=== PATIENT | female | born 1955 | race Caucasian/White ===

== ENCOUNTER 2020-07-18 22:30 | Observation (INO) ==
[2020-07-19] MEDS ORDERED: Naloxone 0.4 MG/ML INJ IVP PRN (01:13)
[2020-07-19] MEDS: Ondansetron 4 MG/2 ML VIAL IVP PRN ×2 (01:52→16:41)
[2020-07-19 03:09] LABS: Basophils % 0.3 %
[2020-07-19 03:11] LABS: Eosinophils % 0.3 %; Hematocrit 34.6 % (35.3-44.9); Hemoglobin 11.5 g/dL (11.5-15.4); Immature Granulocytes % 0.3 % (0-4); Immature Platelets 2.5 % (1.1-6.1); Lymphocytes # 0.3 K/mcL (0.6-4.6); Lymphocytes % 8.6 %; Mean Corpuscular HGB Conc 33.2 g/dL (31.6-35.5); Mean Corpuscular Hemoglobin 31.9 pg (28.0-33.3); Mean Corpuscular Volume 96.1 fL (83.0-100.0); Mean Platelet Volume 10.5 fL (9.4-12.4); Monocytes # 0.4 K/mcL (0.0-1.3); Monocytes % 12.4 %; Red Cell Distribution Width 15.7 % (11.5-14.5); Segmented Neutrophils % 78.1 %; White Blood Count 3.4 K/mcL (4.3-11.1)
[2020-07-19 03:12] LABS: INR 1.2; Prothrombin Time 14.1 Seconds (9.4-12.1)
[2020-07-19 03:16] LABS: Neutrophils # 2.7 K/mcL (1.6-8.9); Platelet Count 53 K/mcL (140-400)
[2020-07-19 03:32] LABS: Alanine Aminotransferase 15 Units/L (7-52); Albumin 3.9 g/dL (3.5-5.7); Albumin/Globulin Ratio 1.6 (1.1-2.2); Alkaline Phosphatase 68 Units/L (34-104); Aspartate Amino Transferase 23 Units/L (13-39); BUN/Creatinine Ratio 18 (6-26); Bilirubin,Total 1.1 mg/dL (0.3-1.0); Blood Urea Nitrogen 12 mg/dL (8-23); Calcium 9.1 mg/dL (8.6-10.3); Carbon Dioxide 21 mEq/L (23-29); Chloride 110 mEq/L (98-107); Globulin 2.5 g/dL (2.4-3.5); Glucose 134 mg/dL (70-105); Magnesium 1.6 mg/dL (1.6-2.6); Osmolality,Calculated 290 (280-300); Phosphorous 2.8 mg/dL (2.7-4.5); Potassium 3.8 mEq/L (3.5-5.1); Sodium 139 mEq/L (136-145); Total Protein 6.4 g/dL (6.4-8.9); eGFR For African Americans > 60 (> 60); eGFR For Non-African Americans > 60 (> 60)
[2020-07-19] MEDS ORDERED: 0.9 % Sodium Chloride 1,000 ML IVC ONE (03:36)
[2020-07-19] MEDS ORDERED: *HR* HYDROmorphone (PF) 1 MG/ML SYRINGE IVP PRN ×2 (03:37→08:35)
[2020-07-19] MEDS ORDERED: ALPRAZolam 0.5 MG TABLET PO PRN (08:35)
[2020-07-19] MEDS: Pantoprazole 40 MG VIAL IVP SCH (09:15)
[2020-07-20] MEDS: Ondansetron 4 MG/2 ML VIAL IVP PRN (00:48)
[2020-07-20 02:46] LABS: Alanine Aminotransferase 15 Units/L (7-52); Albumin 3.4 g/dL (3.5-5.7); Albumin/Globulin Ratio 1.5 (1.1-2.2); Alkaline Phosphatase 60 Units/L (34-104); Aspartate Amino Transferase 26 Units/L (13-39); BUN/Creatinine Ratio 16 (6-26); Bilirubin,Total 1.4 mg/dL (0.3-1.0); Blood Urea Nitrogen 12 mg/dL (8-23); Calcium 8.6 mg/dL (8.6-10.3); Carbon Dioxide 21 mEq/L (23-29); Chloride 112 mEq/L (98-107); Globulin 2.2 g/dL (2.4-3.5); Glucose 91 mg/dL (70-105); Magnesium 1.8 mg/dL (1.6-2.6); Osmolality,Calculated 289 (280-300); Phosphorous 2.2 mg/dL (2.7-4.5); Sodium 140 mEq/L (136-145); Total Protein 5.6 g/dL (6.4-8.9); eGFR For African Americans > 60 (> 60); eGFR For Non-African Americans > 60 (> 60)
[2020-07-20 06:05] LABS: Hemoglobin 10.4 g/dL (11.5-15.4); Mean Corpuscular Volume 99.7 fL (83.0-100.0)
[2020-07-20 06:07] LABS: Basophils % 0.6 %; Eosinophils # 0.1 K/mcL (0.0-0.6); Eosinophils % 1.9 %; Immature Granulocytes % 0.3 % (0-4); Immature Platelets 2.2 % (1.1-6.1); Lymphocytes # 0.8 K/mcL (0.6-4.6); Lymphocytes % 20.8 %; Mean Corpuscular HGB Conc 32.5 g/dL (31.6-35.5); Mean Corpuscular Hemoglobin 32.4 pg (28.0-33.3); Mean Platelet Volume 10.2 fL (9.4-12.4); Monocytes # 0.6 K/mcL (0.0-1.3); Monocytes % 15.3 %; Neutrophils # 2.2 K/mcL (1.6-8.9); Red Blood Count 3.21 M/mcL (3.82-4.97); Segmented Neutrophils % 61.1 %; White Blood Count 3.6 K/mcL (4.3-11.1)
[2020-07-20 06:20] LABS: Platelet Count 55 K/mcL (140-400)
[2020-07-20] MEDS: Pantoprazole 40 MG VIAL IVP SCH (07:59)
[2020-07-20] MEDS ORDERED: 0.9 % Sodium Chloride 1,000 ML IVC SCH (09:15)
[2020-07-20 10:14] VITALS: BP 112/58
== END 2020-07-20 16:19 | disposition home or self-care (01) ==
LOC: 3ANU → SUATTDRO 07-19 00:16
PROVIDERS: ADMIT Family Medicine; ATTEND Internal Medicine

== ENCOUNTER 2021-05-21 16:49 | Inpatient (IN) ==
[2021-05-21] MEDS ORDERED: Naloxone 0.4 MG/ML INJ IVP PRN (19:23)
[2021-05-21] MEDS: Ondansetron 4 MG/2 ML VIAL IVP PRN (20:26)
[2021-05-21] MEDS: Furosemide 20 MG TABLET PO SCH (21:42)
[2021-05-21] MEDS: ALPRAZolam 0.5 MG TABLET PO SCH (21:42)
[2021-05-21] MEDS: *HR* OxyCODONE Immed Rel 5 MG TABLET PO PRN (21:42)
[2021-05-22 03:42] LABS: Basophils % 0.3 %; Hematocrit 30.3 % (35.3-44.9); Hemoglobin 10.3 g/dL (11.5-15.4); Immature Granulocytes % 0.6 % (0-4); Immature Platelets 3.2 % (1.1-6.1); Lymphocytes # 0.4 K/mcL (0.6-4.6); Lymphocytes % 12.6 %; Mean Corpuscular Hemoglobin 31.5 pg (28.0-33.3); Mean Corpuscular Volume 92.7 fL (83.0-100.0); Mean Platelet Volume 10.4 fL (9.4-12.4); Monocytes # 0.3 K/mcL (0.0-1.3); Monocytes % 9.4 %; Neutrophils # 2.4 K/mcL (1.6-8.9); Red Blood Count 3.27 M/mcL (3.82-4.97); Red Cell Distribution Width 15.9 % (11.5-14.5); Segmented Neutrophils % 76.1 %; White Blood Count 3.1 K/mcL (4.3-11.1)
[2021-05-22 03:43] LABS: INR 1.4; Prothrombin Time 15.4 Seconds (9.4-12.1)
[2021-05-22 03:45] LABS: Platelet Count 44 K/mcL (140-400)
[2021-05-22 04:05] LABS: Alanine Aminotransferase 9 Units/L (7-52); Albumin 3.6 g/dL (3.5-5.7); Albumin/Globulin Ratio 1.5 (1.1-2.2); Alkaline Phosphatase 69 Units/L (34-104); Aspartate Amino Transferase 17 Units/L (13-39); BUN/Creatinine Ratio 13 (6-26); Bilirubin,Direct 0.3 mg/dL (0.0-0.2); Bilirubin,Indirect 1.1 mg/dL (0.0-1.0); Bilirubin,Total 1.4 mg/dL (0.3-1.0); Blood Urea Nitrogen 12 mg/dL (8-23); Calcium 9.4 mg/dL (8.6-10.3); Carbon Dioxide 27 mEq/L (23-29); Chloride 103 mEq/L (98-107); Globulin 2.4 g/dL (2.4-3.5); Glucose 103 mg/dL (70-105); Magnesium 1.8 mg/dL (1.6-2.6); Osmolality,Calculated 282 (280-300); Potassium 4.3 mEq/L (3.5-5.1); Sodium 136 mEq/L (136-145); eGFR For African Americans > 60 (> 60); eGFR For Non-African Americans > 60 (> 60)
[2021-05-22 05:09] LABS: Hepatitis B Surface Antigen Nonreactive (Nonreactive)
[2021-05-22 05:37] LABS: Hepatitis C Virus Antibody Nonreactive (Nonreactive)
[2021-05-22 05:38] LABS: Hepatitis B Core IgM Nonreactive (Nonreactive)
[2021-05-22 05:40] LABS: Hepatitis A Antibody IgM Nonreactive (Nonreactive)
[2021-05-22] MEDS: Furosemide 20 MG TABLET PO SCH ×2 (08:23→20:42)
[2021-05-22] MEDS: *HR* OxyCODONE Immed Rel 5 MG TABLET PO PRN ×2 (08:23→14:45)
[2021-05-22 13:41] LABS: RBC,Peritoneal Fluid 10000 RBC/mcL
[2021-05-22 13:43] LABS: Appearance of Peritoneal Fl CLOUDY (Clear)
[2021-05-22] MEDS ORDERED: Albumin 25% 25gram/100mL 25 GM/100 ML IV.SOLN IVPB ONE (14:00)
[2021-05-22 15:17] LABS: Basophils,Peritoneal Fluid 0 %; Eosinophils,Peritoneal Fluid 0 %
[2021-05-22] MEDS ORDERED: Albumin 25% 12.5gm/50mL 12.5 GM/50 ML IV.SOLN IVPB ONE (16:00)
[2021-05-22] MEDS ORDERED: *HR* Enoxaparin 80 MG/0.8 ML SYRINGE SQ SCH (18:00)
[2021-05-22] MEDS: ALPRAZolam 0.5 MG TABLET PO SCH (20:42)
[2021-05-23] MEDS: Furosemide 20 MG TABLET PO SCH (08:38)
[2021-05-23 09:35] LABS: Hematocrit 33.3 % (35.3-44.9); Hemoglobin 11.3 g/dL (11.5-15.4); Mean Corpuscular HGB Conc 33.9 g/dL (31.6-35.5); Mean Corpuscular Volume 91.5 fL (83.0-100.0); Mean Platelet Volume 10.4 fL (9.4-12.4); Red Blood Count 3.64 M/mcL (3.82-4.97); White Blood Count 3.4 K/mcL (4.3-11.1)
[2021-05-23 09:36] LABS: Platelet Count 48 K/mcL (140-400)
[2021-05-23 09:43] LABS: INR 1.4; Prothrombin Time 15.3 Seconds (9.4-12.1)
[2021-05-23 09:54] LABS: Alanine Aminotransferase 9 Units/L (7-52); Albumin 3.7 g/dL (3.5-5.7); Albumin/Globulin Ratio 1.4 (1.1-2.2); Alkaline Phosphatase 69 Units/L (34-104); Aspartate Amino Transferase 19 Units/L (13-39); BUN/Creatinine Ratio 8 (6-26); Bilirubin,Direct 0.3 mg/dL (0.0-0.2); Bilirubin,Indirect 1.2 mg/dL (0.0-1.0); Bilirubin,Total 1.5 mg/dL (0.3-1.0); Blood Urea Nitrogen 7 mg/dL (8-23); Calcium 9.2 mg/dL (8.6-10.3); Carbon Dioxide 27 mEq/L (23-29); Chloride 103 mEq/L (98-107); Globulin 2.6 g/dL (2.4-3.5); Glucose 102 mg/dL (70-105); Magnesium 1.6 mg/dL (1.6-2.6); Osmolality,Calculated 280 (280-300); Potassium 3.7 mEq/L (3.5-5.1); Sodium 136 mEq/L (136-145); Total Protein 6.3 g/dL (6.4-8.9); eGFR For African Americans > 60 (> 60); eGFR For Non-African Americans > 60 (> 60)
[2021-05-23 10:19] VITALS: BP 106/66; PULSE 90; TEMP 99.3; O2SAT 94
[2021-05-23] MEDS: Ondansetron 4 MG/2 ML VIAL IVP PRN (14:33)
[2021-05-24 13:52] LABS: Fluid Source for Albumin PERIT/ASCITES
== END 2021-05-23 14:57 | disposition home or self-care (01) | DRG 432 ==
LOC: 3ANU → SUATTDRO 20:04
PROVIDERS: ADMIT Internal Medicine; ATTEND Internal Medicine

== ENCOUNTER 2021-06-17 11:26 | Observation (INO) ==
[2021-06-17] MEDS ORDERED: Naloxone 0.4 MG/ML INJ IVP PRN (13:40)
[2021-06-17] MEDS ORDERED: Ondansetron 4 MG/2 ML VIAL IVP PRN (13:40)
[2021-06-17] MEDS: Albumin 25% 25gram/100mL 25 GM/100 ML IV.SOLN IVC SCH ×4 (15:02→21:12)
[2021-06-17] MEDS: *HR* OxyCODONE Immed Rel 5 MG TABLET PO PRN (15:02)
[2021-06-17 17:17] LABS: RBC,Peritoneal Fluid 9000 RBC/mcL
[2021-06-17 17:20] LABS: Appearance of Peritoneal Fl CLOUDY (Clear)
[2021-06-17] MEDS: Lactulose Oral Soln 20 GM/30 ML UDC PO SCH (17:27)
[2021-06-17 19:49] LABS: Basophils,Peritoneal Fluid 0 %
[2021-06-17] MEDS: ALPRAZolam 0.5 MG TABLET PO SCH (21:12)
[2021-06-18 02:00] LABS: Immature Platelets 3.8 % (1.1-6.1); Mean Corpuscular HGB Conc 32.1 g/dL (31.6-35.5); Mean Corpuscular Hemoglobin 30.7 pg (28.0-33.3); Mean Corpuscular Volume 95.6 fL (83.0-100.0); Mean Platelet Volume 10.3 fL (9.4-12.4); Red Blood Count 2.93 M/mcL (3.82-4.97); Red Cell Distribution Width 15.5 % (11.5-14.5); White Blood Count 1.9 K/mcL (4.3-11.1)
[2021-06-18 02:08] LABS: BUN/Creatinine Ratio 14 (6-26); Blood Urea Nitrogen 11 mg/dL (8-23); Calcium 9.5 mg/dL (8.6-10.3); Carbon Dioxide 26 mEq/L (23-29); Chloride 104 mEq/L (98-107); Glucose 111 mg/dL (70-105); Osmolality,Calculated 282 (280-300); Potassium 3.6 mEq/L (3.5-5.1); Sodium 136 mEq/L (136-145); eGFR For African Americans > 60 (> 60); eGFR For Non-African Americans > 60 (> 60)
[2021-06-18] MEDS: *HR* OxyCODONE Immed Rel 5 MG TABLET PO PRN ×3 (07:48→23:35)
[2021-06-18] MEDS: Lactulose Oral Soln 20 GM/30 ML UDC PO SCH (07:48)
[2021-06-18] MEDS: Furosemide 40 MG TABLET PO SCH ×2 (07:48→16:56)
[2021-06-18] MEDS: ALPRAZolam 0.5 MG TABLET PO SCH ×2 (07:48→20:13)
[2021-06-18 14:51] LABS: Mean Corpuscular Volume 92.2 fL (83.0-100.0)
[2021-06-18 14:53] LABS: Hematocrit 30.8 % (35.3-44.9); Hemoglobin 10.2 g/dL (11.5-15.4); Mean Corpuscular HGB Conc 33.1 g/dL (31.6-35.5); Mean Corpuscular Hemoglobin 30.5 pg (28.0-33.3); Mean Platelet Volume 9.7 fL (9.4-12.4); Red Blood Count 3.34 M/mcL (3.82-4.97); Red Cell Distribution Width 15.6 % (11.5-14.5); White Blood Count 3.4 K/mcL (4.3-11.1)
[2021-06-19] MEDS: Lactulose Oral Soln 20 GM/30 ML UDC PO SCH (07:50)
[2021-06-19] MEDS: ALPRAZolam 0.5 MG TABLET PO SCH (07:51)
[2021-06-19] MEDS: Furosemide 40 MG TABLET PO SCH (07:51)
[2021-06-19] MEDS: *HR* OxyCODONE Immed Rel 5 MG TABLET PO PRN (08:07)
[2021-06-19 08:25] LABS: Mean Corpuscular HGB Conc 33.4 g/dL (31.6-35.5); Mean Corpuscular Hemoglobin 30.5 pg (28.0-33.3); Mean Platelet Volume 9.9 fL (9.4-12.4)
[2021-06-19 08:27] LABS: Hematocrit 33.8 % (35.3-44.9); Hemoglobin 11.3 g/dL (11.5-15.4); Immature Platelets 3.4 % (1.1-6.1); Mean Corpuscular Volume 91.1 fL (83.0-100.0); Red Blood Count 3.71 M/mcL (3.82-4.97); Red Cell Distribution Width 15.5 % (11.5-14.5); White Blood Count 5.1 K/mcL (4.3-11.1)
[2021-06-19 08:44] LABS: BUN/Creatinine Ratio 11 (6-26); Blood Urea Nitrogen 11 mg/dL (8-23); Calcium 9.6 mg/dL (8.6-10.3); Carbon Dioxide 26 mEq/L (23-29); Chloride 101 mEq/L (98-107); Glucose 93 mg/dL (70-105); Osmolality,Calculated 275 (280-300); Potassium 3.9 mEq/L (3.5-5.1); Sodium 133 mEq/L (136-145); eGFR For African Americans > 60 (> 60); eGFR For Non-African Americans 54 (> 60)
[2021-06-19 11:31] VITALS: BP 96/62; PULSE 70; TEMP 98; O2SAT 96
== END 2021-06-19 15:06 | disposition home or self-care (01) ==
LOC: 3ANU → SUATTDRO 13:26
PROVIDERS: ADMIT Pharmacist; ATTEND Internal Medicine

== ENCOUNTER 2021-11-07 11:02 | Observation (INO) ==
[2021-11-07] MEDS ORDERED: Pantoprazole 40 MG VIAL IVP ONE (11:44)
[2021-11-07] MEDS ORDERED: cefTRIAXone 1,000 MG in 0.9 % Sodium Chloride 10 ML IVP ONE (11:44)
[2021-11-07] MEDS ORDERED: Metoclopramide 10 MG/2 ML VIAL IVP ONE (11:55)
[2021-11-07] MEDS ORDERED: Morphine Sulfate 2 MG/ML SYRINGE IVP ONE (11:55)
[2021-11-07] MEDS ORDERED: Pantoprazole 40 MG VIAL ONE (13:03)
[2021-11-07] MEDS: Pantoprazole 40 MG in 0.9 % Sodium Chloride Mini Bag 100 ML IVC SCH ×3 (13:15→22:39)
[2021-11-07 13:19] LABS: Basophils % 0.3 %; Immature Granulocytes % 0.5 % (0-4); Lymphocytes % 11.1 %; Mean Platelet Volume 9.8 fL (9.4-12.4)
[2021-11-07 13:21] LABS: Eosinophils % 0.3 %; Hematocrit 26.3 % (35.3-44.9); Hemoglobin 8.7 g/dL (11.5-15.4); Immature Platelets 2.1 % (1.1-6.1); Lymphocytes # 0.4 K/mcL (0.6-4.6); Mean Corpuscular HGB Conc 33.1 g/dL (31.6-35.5); Mean Corpuscular Volume 90.7 fL (83.0-100.0); Monocytes # 0.5 K/mcL (0.0-1.3); Monocytes % 12.7 %; Neutrophils # 2.9 K/mcL (1.6-8.9); Segmented Neutrophils % 75.1 %; White Blood Count 3.9 K/mcL (4.3-11.1)
[2021-11-07 13:26] LABS: Platelet Count 73 K/mcL (140-400)
[2021-11-07 13:29] LABS: INR 1.3
[2021-11-07 13:37] LABS: BUN/Creatinine Ratio 26 (6-26); Blood Urea Nitrogen 23 mg/dL (8-23); Calcium 9.9 mg/dL (8.6-10.3); Carbon Dioxide 26 mEq/L (23-29); Chloride 99 mEq/L (98-107); Glucose 101 mg/dL (70-105); Lipase 52 Units/L (11-82); Magnesium 2.2 mg/dL (1.6-2.6); Osmolality,Calculated 276 (280-300); Potassium 4.4 mEq/L (3.5-5.1); Sodium 131 mEq/L (136-145); Troponin I < 0.03 ng/mL (< 0.04); eGFR For African Americans > 60 (> 60); eGFR For Non-African Americans > 60 (> 60)
[2021-11-07 13:46] LABS: Platelet Estimate Decreased (Normal)
[2021-11-07] MEDS ORDERED: Isovue-370 500 ML BOTTLE IVP ONE (13:59)
[2021-11-07] MEDS ORDERED: Naloxone 0.4 MG/ML INJ IVP PRN (15:14)
[2021-11-07] MEDS: Ondansetron 4 MG/2 ML VIAL IVP PRN (17:39)
[2021-11-07 17:56] LABS: Albumin 3.5 g/dL (3.5-5.7); Albumin/Globulin Ratio 1.3 (1.1-2.2); Bilirubin,Direct 0.2 mg/dL (0.0-0.2); Bilirubin,Indirect 0.9 mg/dL (0.0-1.0); Bilirubin,Total 1.1 mg/dL (0.3-1.0); Globulin 2.7 g/dL (2.4-3.5); Total Protein 6.2 g/dL (6.4-8.9)
[2021-11-07 17:58] LABS: Hematocrit 25.7 % (35.3-44.9); Hemoglobin 8.6 g/dL (11.5-15.4)
[2021-11-07] MEDS: Octreotide 400 MCG in 0.9 % Sodium Chloride 100 ML IVC SCH (18:03)
[2021-11-07] MEDS: Ringers Solution, Lactated 1,000 ML IVC SCH (18:03)
[2021-11-07 21:47] LABS: Hematocrit 22.4 % (35.3-44.9); Hemoglobin 7.5 g/dL (11.5-15.4)
[2021-11-07] MEDS: Melatonin 3 MG TABLET PO PRN (21:55)
[2021-11-08 03:29] LABS: Bilirubin,Urine Negative (Negative); Blood,Urine Negative (Negative); Clarity,Urine Clear (Clear); Color,Urine Yellow (Yellow); Glucose,Urine (UA) Normal (Normal); Ketones,Urine Negative (Negative); Leukocyte Esterase,Urine Negative (Negative); Nitrite,Urine Negative (Negative); PH,Urine 5.5 pH Units (5.0-8.0); Protein,Urine Trace mg/dL (Neg-Trace); Specific Gravity,Urine > 1.030 (1.010-1.025); Urobilinogen,Urine Normal (Normal)
[2021-11-08] MEDS: Pantoprazole 40 MG in 0.9 % Sodium Chloride Mini Bag 100 ML IVC SCH ×2 (04:32→19:34)
[2021-11-08 05:07] LABS: INR 1.3; Prothrombin Time 14.6 Seconds (9.4-12.1)
[2021-11-08 05:17] LABS: Hematocrit 22.2 % (35.3-44.9); Hemoglobin 7.5 g/dL (11.5-15.4); Mean Corpuscular HGB Conc 33.8 g/dL (31.6-35.5); Mean Corpuscular Hemoglobin 30.7 pg (28.0-33.3); Red Blood Count 2.44 M/mcL (3.82-4.97); Red Cell Distribution Width 16.1 % (11.5-14.5)
[2021-11-08 05:19] LABS: Basophils % 0.3 %; Eosinophils % 0.7 %; Immature Granulocytes % 0.3 % (0-4); Lymphocytes # 0.4 K/mcL (0.6-4.6); Lymphocytes % 11.7 %; Monocytes # 0.4 K/mcL (0.0-1.3); Monocytes % 12.7 %; Neutrophils # 2.2 K/mcL (1.6-8.9); Segmented Neutrophils % 74.3 %
[2021-11-08 05:22] LABS: BUN/Creatinine Ratio 22 (6-26); Blood Urea Nitrogen 21 mg/dL (8-23); Calcium 8.9 mg/dL (8.6-10.3); Carbon Dioxide 24 mEq/L (23-29); Chloride 101 mEq/L (98-107); Glucose 124 mg/dL (70-105); Magnesium 1.9 mg/dL (1.6-2.6); Osmolality,Calculated 276 (280-300); Phosphorous 3.4 mg/dL (2.7-4.5); Potassium 4.7 mEq/L (3.5-5.1); Sodium 131 mEq/L (136-145); eGFR For African Americans > 60 (> 60); eGFR For Non-African Americans 59 (> 60)
[2021-11-08 05:30] LABS: Platelet Count 62 K/mcL (140-400); Platelet Estimate Decreased (Normal)
[2021-11-08] MEDS: Octreotide 400 MCG in 0.9 % Sodium Chloride 100 ML IVC SCH (06:57)
[2021-11-08] MEDS: Ringers Solution, Lactated 1,000 ML IVC SCH (06:58)
[2021-11-08] MEDS: cefTRIAXone 1,000 MG in 0.9 % Sodium Chloride 10 ML IVP SCH (09:04)
[2021-11-08] MEDS ORDERED: *HR* Propofol 200 MG/20 ML VIAL IVP ONE ×2 (11:32→11:48)
[2021-11-08] MEDS ORDERED: *HR* EPINEPHrine 1 MG/10 ML SYRINGE INTRATRACH PRN (11:47)
[2021-11-08] MEDS: ALPRAZolam 0.5 MG TABLET PO PRN ×2 (13:14→20:14)
[2021-11-08] MEDS: Ondansetron 4 MG/2 ML VIAL IVP PRN (15:20)
[2021-11-08] MEDS: Melatonin 3 MG TABLET PO PRN (20:14)
[2021-11-08 23:58] VITALS: O2SAT 96
[2021-11-09] MEDS: Pantoprazole 40 MG in 0.9 % Sodium Chloride Mini Bag 100 ML IVC SCH (01:06)
[2021-11-09] MEDS: Ondansetron 4 MG/2 ML VIAL IVP PRN (03:15)
[2021-11-09 06:40] VITALS: BP 106/47; PULSE 85; TEMP 98.1
[2021-11-09 06:48] LABS: INR 1.3; Prothrombin Time 14.2 Seconds (9.4-12.1)
[2021-11-09 07:20] LABS: Basophils % 0.2 %; Immature Granulocytes % 0.2 % (0-4); Red Blood Count 2.45 M/mcL (3.82-4.97)
[2021-11-09 07:22] LABS: Eosinophils % 0.2 %; Hematocrit 22.5 % (35.3-44.9); Hemoglobin 7.4 g/dL (11.5-15.4); Immature Platelets 2.7 % (1.1-6.1); Lymphocytes # 0.4 K/mcL (0.6-4.6); Lymphocytes % 9.5 %; Mean Corpuscular HGB Conc 32.9 g/dL (31.6-35.5); Mean Corpuscular Hemoglobin 30.2 pg (28.0-33.3); Mean Corpuscular Volume 91.8 fL (83.0-100.0); Monocytes # 0.4 K/mcL (0.0-1.3); Neutrophils # 3.2 K/mcL (1.6-8.9); Red Cell Distribution Width 15.9 % (11.5-14.5); Segmented Neutrophils % 78.9 %
[2021-11-09 07:28] LABS: Platelet Count 69 K/mcL (140-400)
[2021-11-09 07:35] LABS: BUN/Creatinine Ratio 20 (6-26); Blood Urea Nitrogen 18 mg/dL (8-23); Calcium 8.5 mg/dL (8.6-10.3); Carbon Dioxide 25 mEq/L (23-29); Chloride 103 mEq/L (98-107); Glucose 96 mg/dL (70-105); Magnesium 1.8 mg/dL (1.6-2.6); Osmolality,Calculated 276 (280-300); Potassium 4.4 mEq/L (3.5-5.1); Sodium 132 mEq/L (136-145); eGFR For African Americans > 60 (> 60); eGFR For Non-African Americans > 60 (> 60)
[2021-11-09] MEDS: cefTRIAXone 1,000 MG in 0.9 % Sodium Chloride 10 ML IVP SCH (08:22)
[2021-11-09] MEDS ORDERED: Apixaban 5 MG TABLET PO SCH (09:00)
== END 2021-11-09 14:54 | disposition home or self-care (01) ==
LOC: EMEROOARM 11:02 → 2NENU 11:02
PROVIDERS: ADMIT Internal Medicine; ATTEND Internal Medicine

== ENCOUNTER 2022-03-11 10:24 | Observation (INO) ==
[2022-03-11 11:30] LABS: Albumin 3.5 g/dL (3.5-5.7); Albumin/Globulin Ratio 1.4 (1.1-2.2); Bilirubin,Total 0.8 mg/dL (0.3-1.0); Calcium 9.4 mg/dL (8.6-10.3); Globulin 2.5 g/dL (2.4-3.5); Potassium 4.1 mEq/L (3.5-5.1)
[2022-03-11] MEDS ORDERED: *HR* FentaNYL (PF) 100 MCG/2 ML VIAL ONE (12:15)
[2022-03-11] MEDS ORDERED: Ondansetron 4 MG/2 ML VIAL IVP PRN ×3 (14:31→16:25)
[2022-03-11] MEDS ORDERED: Promethazine 6.25 MG in Water for inj. (sterile) 20 ML IVPB PRN (14:31)
[2022-03-11] MEDS: *HR* HYDROmorphone PF 0.5 MG/0.5 ML SYRINGE IVP PRN ×2 (14:40→14:49)
[2022-03-11] MEDS: Promethazine 6.25 MG in Water for inj. (sterile) 20 ML IVPB PRN ×2 (14:53→20:02)
[2022-03-11] MEDS ORDERED: Acetaminophen 325 MG TABLET PO PRN (16:25)
[2022-03-11] MEDS ORDERED: Naloxone 0.4 MG/ML INJ IVP PRN (16:25)
[2022-03-11] MEDS: *HR* OxyCODONE Immed Rel 5 MG TABLET PO PRN ×2 (17:03→23:22)
[2022-03-11] MEDS: ALPRAZolam 0.5 MG TABLET PO PRN (20:02)
[2022-03-12 01:40] LABS: Hemoglobin 7.3 g/dL (11.5-15.4); Red Cell Distribution Width 20.3 % (11.5-14.5)
[2022-03-12 01:42] LABS: Hematocrit 23.6 % (35.3-44.9); Immature Granulocytes % 0.7 % (0-4); Immature Platelets 1.8 % (1.1-6.1); Lymphocytes # 0.2 K/mcL (0.6-4.6); Lymphocytes % 6.6 %; Mean Corpuscular HGB Conc 30.9 g/dL (31.6-35.5); Mean Corpuscular Hemoglobin 23.1 pg (28.0-33.3); Mean Corpuscular Volume 74.7 fL (83.0-100.0); Mean Platelet Volume 9.5 fL (9.4-12.4); Monocytes # 0.2 K/mcL (0.0-1.3); Monocytes % 7.3 %; Neutrophils # 2.6 K/mcL (1.6-8.9); Red Blood Count 3.16 M/mcL (3.82-4.97); Segmented Neutrophils % 85.4 %
[2022-03-12 01:44] LABS: Platelet Count 69 K/mcL (140-400)
[2022-03-12 01:46] LABS: INR 1.3; Prothrombin Time 14.2 Seconds (9.4-12.1)
[2022-03-12 02:00] LABS: Calcium 8.6 mg/dL (8.6-10.3); Magnesium 1.8 mg/dL (1.6-2.6); Potassium 4.5 mEq/L (3.5-5.1)
[2022-03-12 02:01] LABS: Albumin/Globulin Ratio 1.4 (1.1-2.2); Bilirubin,Direct 0.2 mg/dL (0.0-0.2); Bilirubin,Indirect 0.6 mg/dL (0.0-1.0); Bilirubin,Total 0.8 mg/dL (0.3-1.0); Globulin 2.2 g/dL (2.4-3.5); Total Protein 5.2 g/dL (6.4-8.9)
[2022-03-12 07:42] VITALS: BP 102/35; PULSE 83; TEMP 97.8; O2SAT 98
[2022-03-12] MEDS: *HR* OxyCODONE Immed Rel 5 MG TABLET PO PRN ×2 (07:59→14:04)
[2022-03-12] MEDS: ALPRAZolam 0.5 MG TABLET PO PRN (07:59)
== END 2022-03-12 14:13 | disposition home or self-care (01) ==
LOC: 2NNU 10:24 → LAB 10:24
PROVIDERS: ADMIT Pharmacist; ATTEND Pharmacist

== ENCOUNTER 2022-04-08 16:15 | Inpatient (IN) ==
[2022-04-08] MEDS ORDERED: Ondansetron ODT 4 MG TAB.RAPDIS SL PRN (19:27)
[2022-04-08] MEDS ORDERED: Naloxone 0.4 MG/ML INJ IVP PRN (19:27)
[2022-04-08] MEDS ORDERED: Melatonin 3 MG TABLET PO PRN (19:27)
[2022-04-08] MEDS ORDERED: Lactulose Oral Soln 20 GM/30 ML UDC PO SCH (21:00)
[2022-04-08] MEDS: Lactulose Oral Soln 20 GM/30 ML UDC PO SCH (22:39)
[2022-04-09] MEDS: ALPRAZolam 0.25 MG TABLET PO SCH ×2 (01:55→20:49)
[2022-04-09 04:50] LABS: Hemoglobin 7.1 g/dL (11.5-15.4)
[2022-04-09 04:55] LABS: INR 1.5; Prothrombin Time 16.7 Seconds (9.4-12.1)
[2022-04-09 05:18] LABS: Albumin 3.1 g/dL (3.5-5.7); Albumin/Globulin Ratio 1.3 (1.1-2.2); Bilirubin,Direct 0.5 mg/dL (0.0-0.2); Bilirubin,Indirect 1.5 mg/dL (0.0-1.0); Globulin 2.3 g/dL (2.4-3.5); Phosphorous 2.5 mg/dL (2.7-4.5); Total Protein 5.4 g/dL (6.4-8.9)
[2022-04-09 05:23] LABS: Basophils % 0.3 %; Eosinophils # 0.1 K/mcL (0.0-0.6); Eosinophils % 4.1 %; Hematocrit 22.1 % (35.3-44.9); Lymphocytes # 0.4 K/mcL (0.6-4.6); Lymphocytes % 14.5 %; Mean Corpuscular HGB Conc 32.1 g/dL (31.6-35.5); Mean Corpuscular Hemoglobin 24.9 pg (28.0-33.3); Mean Corpuscular Volume 77.5 fL (83.0-100.0); Mean Platelet Volume 9.6 fL (9.4-12.4); Monocytes % 14.9 %; Red Blood Count 2.85 M/mcL (3.82-4.97); Red Cell Distribution Width 23.6 % (11.5-14.5); Segmented Neutrophils % 66.2 %
[2022-04-09 05:24] LABS: Monocytes # 0.5 K/mcL (0.0-1.3); Platelet Count 65 K/mcL (140-400)
[2022-04-09] MEDS: Lactulose Oral Soln 20 GM/30 ML UDC PO SCH ×2 (08:09→20:49)
[2022-04-09] MEDS: Furosemide 40 MG TABLET PO SCH (08:09)
[2022-04-09 11:32] LABS: Bilirubin,Urine Negative (Negative); Blood,Urine Negative (Negative); Clarity,Urine Clear (Clear); Color,Urine Light-Yellow (Yellow); Glucose,Urine (UA) Normal (Normal); Ketones,Urine Negative (Negative); Leukocyte Esterase,Urine Negative (Negative); Nitrite,Urine Negative (Negative); PH,Urine 6.5 pH Units (5.0-8.0); Protein,Urine Negative (Neg-Trace); Specific Gravity,Urine 1.009 (1.010-1.025)
[2022-04-09] MEDS ORDERED: ALPRAZolam 0.25 MG TABLET PO SCH (21:00)
[2022-04-10 06:44] LABS: Basophils % 0.6 %; Immature Granulocytes % 0.3 % (0-4)
[2022-04-10 06:46] LABS: Eosinophils # 0.1 K/mcL (0.0-0.6); Eosinophils % 3.1 %; Hematocrit 22.3 % (35.3-44.9); Hemoglobin 7.1 g/dL (11.5-15.4); Immature Platelets 1.8 % (1.1-6.1); Lymphocytes # 0.5 K/mcL (0.6-4.6); Lymphocytes % 14.1 %; Mean Corpuscular HGB Conc 31.8 g/dL (31.6-35.5); Mean Corpuscular Hemoglobin 24.9 pg (28.0-33.3); Mean Corpuscular Volume 78.2 fL (83.0-100.0); Mean Platelet Volume 9.6 fL (9.4-12.4); Monocytes # 0.5 K/mcL (0.0-1.3); Monocytes % 14.4 %; Neutrophils # 2.2 K/mcL (1.6-8.9); Red Blood Count 2.85 M/mcL (3.82-4.97); Red Cell Distribution Width 23.5 % (11.5-14.5); Segmented Neutrophils % 67.5 %; White Blood Count 3.3 K/mcL (4.3-11.1)
[2022-04-10 06:51] LABS: Platelet Count 77 K/mcL (140-400)
[2022-04-10 06:58] LABS: Albumin 3.1 g/dL (3.5-5.7); Albumin/Globulin Ratio 1.3 (1.1-2.2); Bilirubin,Total 2.1 mg/dL (0.3-1.0); Calcium 9.4 mg/dL (8.6-10.3); Globulin 2.3 g/dL (2.4-3.5); Potassium 4.2 mEq/L (3.5-5.1); Total Protein 5.4 g/dL (6.4-8.9)
[2022-04-10] MEDS: Furosemide 40 MG TABLET PO SCH (07:45)
[2022-04-10] MEDS: Lactulose Oral Soln 20 GM/30 ML UDC PO SCH ×4 (07:46→22:52)
[2022-04-10] MEDS: Bumetanide 1 MG TABLET PO SCH (16:56)
[2022-04-10] MEDS: ALPRAZolam 0.25 MG TABLET PO SCH (22:45)
[2022-04-11 04:05] LABS: Red Cell Distribution Width 23.6 % (11.5-14.5)
[2022-04-11 04:06] LABS: Basophils % 0.3 %; Eosinophils # 0.1 K/mcL (0.0-0.6); Eosinophils % 2.7 %; Hematocrit 22.2 % (35.3-44.9); Hemoglobin 7.1 g/dL (11.5-15.4); Immature Platelets 2.2 % (1.1-6.1); Lymphocytes # 0.5 K/mcL (0.6-4.6); Mean Corpuscular Hemoglobin 24.8 pg (28.0-33.3); Mean Corpuscular Volume 77.6 fL (83.0-100.0); Mean Platelet Volume 9.9 fL (9.4-12.4); Monocytes # 0.5 K/mcL (0.0-1.3); Monocytes % 15.3 %; Red Blood Count 2.86 M/mcL (3.82-4.97); Segmented Neutrophils % 66.7 %
[2022-04-11 04:09] LABS: INR 1.4; Prothrombin Time 15.7 Seconds (9.4-12.1)
[2022-04-11 04:23] LABS: Albumin 3.1 g/dL (3.5-5.7); Albumin/Globulin Ratio 1.3 (1.1-2.2); Bilirubin,Direct 0.5 mg/dL (0.0-0.2); Bilirubin,Indirect 1.1 mg/dL (0.0-1.0); Bilirubin,Total 1.6 mg/dL (0.3-1.0); Calcium 9.2 mg/dL (8.6-10.3); Globulin 2.4 g/dL (2.4-3.5); Magnesium 1.9 mg/dL (1.6-2.6); Phosphorous 2.4 mg/dL (2.7-4.5); Potassium 3.9 mEq/L (3.5-5.1); Total Protein 5.5 g/dL (6.4-8.9)
[2022-04-11 05:13] LABS: Platelet Count 66 K/mcL (140-400)
[2022-04-11 05:31] LABS: Anisocytosis 2+ (Not Present)
[2022-04-11] MEDS ORDERED: Lactulose 200 GM, Sodium Chloride IRRigation 700 ML RC ONE (07:37)
[2022-04-11] MEDS ORDERED: Iron Sucrose Complex 200 MG in 0.9 % Sodium Chloride 100 ML IVPB ONE (09:28)
[2022-04-11] MEDS: Lactulose Oral Soln 20 GM/30 ML UDC PO SCH ×3 (09:32→20:28)
[2022-04-11] MEDS: Bumetanide 1 MG TABLET PO SCH ×2 (09:33→16:41)
[2022-04-11] MEDS ORDERED: ALPRAZolam 0.5 MG TABLET PO PRN (10:25)
[2022-04-11 22:17] VITALS: TEMP 98
[2022-04-12 03:49] LABS: Basophils % 0.7 %; Eosinophils # 0.1 K/mcL (0.0-0.6); Eosinophils % 4.2 %; Immature Granulocytes % 0.7 % (0-4); Immature Platelets 2.7 % (1.1-6.1); Lymphocytes # 0.5 K/mcL (0.6-4.6); Lymphocytes % 14.7 %; Mean Corpuscular HGB Conc 31.8 g/dL (31.6-35.5); Mean Corpuscular Hemoglobin 24.6 pg (28.0-33.3); Mean Corpuscular Volume 77.2 fL (83.0-100.0); Mean Platelet Volume 9.2 fL (9.4-12.4); Monocytes # 0.5 K/mcL (0.0-1.3); Red Blood Count 2.85 M/mcL (3.82-4.97); Red Cell Distribution Width 23.6 % (11.5-14.5); Segmented Neutrophils % 63.7 %; White Blood Count 3.1 K/mcL (4.3-11.1)
[2022-04-12 04:01] LABS: Platelet Count 74 K/mcL (140-400)
[2022-04-12 04:06] LABS: Calcium 9.2 mg/dL (8.6-10.3); Phosphorous 3.1 mg/dL (2.7-4.5); Potassium 3.8 mEq/L (3.5-5.1)
[2022-04-12 06:29] LABS: Platelet Estimate Decreased (Normal)
[2022-04-12 06:30] LABS: Anisocytosis 1+ (Not Present)
[2022-04-12] MEDS ORDERED: Iron Sucrose Complex 200 MG in 0.9 % Sodium Chloride 100 ML IVPB ONE (07:20)
[2022-04-12] MEDS: Lactulose Oral Soln 20 GM/30 ML UDC PO SCH (07:31)
[2022-04-12] MEDS: Bumetanide 1 MG TABLET PO SCH (07:31)
[2022-04-12 11:23] VITALS: BP 106/62; PULSE 87; O2SAT 97
[2022-04-12 12:49] LABS: Hematocrit 23.6 % (35.3-44.9); Hemoglobin 7.6 g/dL (11.5-15.4)
[2022-04-12] MEDS ORDERED: Flu Vac QV 22-23 (6MOS UP)/PF 0.5 ML SYRINGE IM ONE (13:26)
== END 2022-04-12 14:56 | disposition home or self-care (01) | DRG 433 ==
LOC: 3ANU → SUATTDRO 18:50 → 3ANU 18:57
PROVIDERS: ADMIT Hospitalist; ATTEND Internal Medicine

== ENCOUNTER 2022-05-01 14:34 | Inpatient (IN) ==
[2022-05-01] MEDS ORDERED: Naloxone 0.4 MG/ML INJ IVP PRN (17:17)
[2022-05-01] MEDS ORDERED: Ondansetron 4 MG/2 ML VIAL IVP PRN (17:17)
[2022-05-01] MEDS ORDERED: *HR* Dextrose 50 % in Water (Syg) 50 ML SYRINGE IVP PRN (17:22)
[2022-05-01] MEDS ORDERED: D5% in Water 1,000 ML IVC PRN (17:22)
[2022-05-01] MEDS ORDERED: Dextrose Gel 15 GM/37.5 ML TUBE PO PRN ×2 (17:22)
[2022-05-01] MEDS ORDERED: ALPRAZolam 0.5 MG TABLET PO PRN (18:51)
[2022-05-01 19:06] LABS: Bilirubin,Urine Negative (Negative); Blood,Urine Negative (Negative); Clarity,Urine Clear (Clear); Color,Urine Yellow (Yellow); Glucose,Urine (UA) Normal (Normal); Ketones,Urine Negative (Negative); Leukocyte Esterase,Urine Negative (Negative); Nitrite,Urine Negative (Negative); Protein,Urine Negative (Neg-Trace); Specific Gravity,Urine 1.016 (1.010-1.025); Urobilinogen,Urine >=8.0 mg/dL (Normal)
[2022-05-01 19:20] LABS: Amphetamine Screen,Urine Negative ng/mL (Cutoff=1000); Barbiturate Screen,Urine Negative ng/mL (Cutoff=200); Benzodiazepines Screen,Urine Positive ng/mL (Cutoff=200); Cannabinoid Screen,Urine Positive ng/mL (Cutoff = 50); Cocaine Screen,Urine Negative ng/mL (Cutoff= 300); Opiate Screen,Urine Negative ng/mL (Cutoff=300); Phencyclidine Screen,Urine Negative ng/mL (Cutoff=25)
[2022-05-01] MEDS: Lactulose Oral Soln 20 GM/30 ML UDC PO SCH (20:17)
[2022-05-02 05:21] LABS: INR 1.3; Prothrombin Time 14.9 Seconds (9.4-12.1)
[2022-05-02 06:25] LABS: Hemoglobin 7.2 g/dL (11.5-15.4); Immature Granulocytes % 0.6 % (0-4)
[2022-05-02 06:27] LABS: Basophils % 0.6 %; Eosinophils # 0.1 K/mcL (0.0-0.6); Eosinophils % 2.8 %; Hematocrit 22.6 % (35.3-44.9); Immature Platelets 1.4 % (1.1-6.1); Lymphocytes # 0.4 K/mcL (0.6-4.6); Lymphocytes % 21.5 %; Mean Corpuscular HGB Conc 31.9 g/dL (31.6-35.5); Mean Corpuscular Hemoglobin 28.1 pg (28.0-33.3); Mean Corpuscular Volume 88.3 fL (83.0-100.0); Monocytes # 0.3 K/mcL (0.0-1.3); Monocytes % 18.1 %; Red Blood Count 2.56 M/mcL (3.82-4.97); Red Cell Distribution Width 26.4 % (11.5-14.5); Segmented Neutrophils % 56.4 %; White Blood Count 1.8 K/mcL (4.3-11.1)
[2022-05-02 06:56] LABS: Activated Partial Thrombo Time 20.9 Seconds (26.0-36.0)
[2022-05-02 07:53] LABS: BUN/Creatinine Ratio 19 (6-26); Blood Urea Nitrogen 12 mg/dL (8-23); Chloride 110 mEq/L (98-107); Glucose 95 mg/dL (70-105); Osmolality,Calculated 290 (280-300); Potassium 3.2 mEq/L (3.5-5.1); Sodium 140 mEq/L (136-145)
[2022-05-02 07:54] LABS: Alanine Aminotransferase 15 Units/L (7-52); Albumin 2.6 g/dL (3.5-5.7); Alkaline Phosphatase 91 Units/L (34-104); Aspartate Amino Transferase 22 Units/L (13-39); Bilirubin,Direct 0.5 mg/dL (0.0-0.2); Calcium 8.5 mg/dL (8.6-10.3); Phosphorous 2.8 mg/dL (2.7-4.5)
[2022-05-02 08:12] LABS: Albumin/Globulin Ratio 1.4 (1.1-2.2); Bilirubin,Indirect 1.4 mg/dL (0.0-1.0); Bilirubin,Total 1.9 mg/dL (0.3-1.0); Carbon Dioxide 23 mEq/L (23-29); Total Protein 4.7 g/dL (6.4-8.9)
[2022-05-02] MEDS: Lactulose Oral Soln 20 GM/30 ML UDC PO SCH ×3 (10:02→20:55)
[2022-05-02] MEDS: Bumetanide 1 MG TABLET PO SCH ×2 (10:03→20:55)
[2022-05-02 10:36] LABS: Platelet Count 82 K/mcL (140-400)
[2022-05-02 10:39] LABS: Anisocytosis 1+ (Not Present); Platelet Estimate Decreased (Normal)
[2022-05-03 09:43] LABS: Hematocrit 24.8 % (35.3-44.9); Hemoglobin 7.9 g/dL (11.5-15.4); Immature Platelets 1.3 % (1.1-6.1); Lymphocytes # 0.3 K/mcL (0.6-4.6); Mean Corpuscular HGB Conc 31.9 g/dL (31.6-35.5); Mean Corpuscular Hemoglobin 28.7 pg (28.0-33.3); Mean Corpuscular Volume 90.2 fL (83.0-100.0); Mean Platelet Volume 8.7 fL (9.4-12.4); Red Blood Count 2.75 M/mcL (3.82-4.97); Red Cell Distribution Width 26.4 % (11.5-14.5); White Blood Count 2.9 K/mcL (4.3-11.1)
[2022-05-03] MEDS: Lactulose Oral Soln 20 GM/30 ML UDC PO SCH ×3 (09:56→20:40)
[2022-05-03] MEDS: Bumetanide 1 MG TABLET PO SCH ×2 (09:56→20:40)
[2022-05-03 09:59] LABS: Calcium 8.6 mg/dL (8.6-10.3); Potassium 3.5 mEq/L (3.5-5.1)
[2022-05-03 10:01] LABS: Platelet Count 82 K/mcL (140-400)
[2022-05-03 10:47] LABS: Anisocytosis 3+ (Not Present); Monocytes # 0.2 K/mcL (0.0-1.3); Neutrophils # 2.4 K/mcL (1.6-8.9); Platelet Estimate Decreased (Normal)
[2022-05-03 10:48] LABS: Poikilocytosis 1+ (Not Present); Polychromasia 1+ (Not Present)
[2022-05-03] MEDS: Insulin LISPRO 300 UNITS/3 ML VIAL SUBQ SCH ×2 (12:50→18:23)
[2022-05-03] MEDS: polyethylene glycoL 3350 17 GM POWD.PACK PO SCH (20:40)
[2022-05-03] MEDS ORDERED: Insulin LISPRO 300 UNITS/3 ML VIAL SUBQ SCH (21:00)
[2022-05-04 03:05] LABS: Hemoglobin 7.5 g/dL (11.5-15.4); Immature Granulocytes % 0.3 % (0-4); Red Cell Distribution Width 25.4 % (11.5-14.5)
[2022-05-04 03:07] LABS: Basophils % 0.7 %; Eosinophils # 0.1 K/mcL (0.0-0.6); Eosinophils % 2.3 %; Hematocrit 22.9 % (35.3-44.9); Immature Platelets 1.6 % (1.1-6.1); Lymphocytes # 0.5 K/mcL (0.6-4.6); Lymphocytes % 15.4 %; Mean Corpuscular HGB Conc 32.8 g/dL (31.6-35.5); Mean Corpuscular Hemoglobin 28.8 pg (28.0-33.3); Mean Corpuscular Volume 88.1 fL (83.0-100.0); Mean Platelet Volume 9.3 fL (9.4-12.4); Monocytes # 0.4 K/mcL (0.0-1.3); Monocytes % 12.1 %; Segmented Neutrophils % 69.2 %; White Blood Count 3.1 K/mcL (4.3-11.1)
[2022-05-04 03:13] LABS: Neutrophils # 2.2 K/mcL (1.6-8.9); Platelet Count 71 K/mcL (140-400)
[2022-05-04 03:29] LABS: BUN/Creatinine Ratio 18 (6-26); Blood Urea Nitrogen 12 mg/dL (8-23); Calcium 8.2 mg/dL (8.6-10.3); Carbon Dioxide 26 mEq/L (23-29); Chloride 106 mEq/L (98-107); Glucose 104 mg/dL (70-105); Osmolality,Calculated 284 (280-300); Sodium 137 mEq/L (136-145)
[2022-05-04 04:33] LABS: Anisocytosis 3+ (Not Present)
[2022-05-04 04:34] LABS: Platelet Estimate Decreased (Normal); Polychromasia 1+ (Not Present)
[2022-05-04] MEDS: Insulin LISPRO 300 UNITS/3 ML VIAL SUBQ SCH ×2 (08:37→12:34)
[2022-05-04] MEDS: Bumetanide 1 MG TABLET PO SCH ×2 (09:23→19:58)
[2022-05-04] MEDS: Lactulose Oral Soln 20 GM/30 ML UDC PO SCH ×3 (09:23→19:58)
[2022-05-04] MEDS: Lactobacillus 1 EACH CAP.SPRINK PO SCH (09:23)
[2022-05-04] MEDS: polyethylene glycoL 3350 17 GM POWD.PACK PO SCH ×2 (09:28→19:58)
[2022-05-05 03:35] LABS: BUN/Creatinine Ratio 16 (6-26); Blood Urea Nitrogen 11 mg/dL (8-23); Calcium 8.4 mg/dL (8.6-10.3); Carbon Dioxide 25 mEq/L (23-29); Chloride 106 mEq/L (98-107); Glucose 87 mg/dL (70-105); Magnesium 1.7 mg/dL (1.6-2.6); Osmolality,Calculated 283 (280-300); Potassium 3.3 mEq/L (3.5-5.1); Sodium 137 mEq/L (136-145)
[2022-05-05] MEDS: Bumetanide 1 MG TABLET PO SCH ×2 (08:39→20:23)
[2022-05-05] MEDS: polyethylene glycoL 3350 17 GM POWD.PACK PO SCH ×2 (08:39→20:23)
[2022-05-05] MEDS: Lactobacillus 1 EACH CAP.SPRINK PO SCH (08:39)
[2022-05-05] MEDS: Lactulose Oral Soln 20 GM/30 ML UDC PO SCH ×3 (08:39→20:22)
[2022-05-06 03:18] LABS: Mean Corpuscular Volume 87.6 fL (83.0-100.0)
[2022-05-06 03:20] LABS: Hematocrit 23.3 % (35.3-44.9); Hemoglobin 7.6 g/dL (11.5-15.4); Mean Corpuscular HGB Conc 32.6 g/dL (31.6-35.5); Mean Corpuscular Hemoglobin 28.6 pg (28.0-33.3); Red Blood Count 2.66 M/mcL (3.82-4.97); Red Cell Distribution Width 25.6 % (11.5-14.5); White Blood Count 3.5 K/mcL (4.3-11.1)
[2022-05-06 03:36] LABS: BUN/Creatinine Ratio 13 (6-26); Blood Urea Nitrogen 9 mg/dL (8-23); Calcium 8.6 mg/dL (8.6-10.3); Carbon Dioxide 25 mEq/L (23-29); Chloride 104 mEq/L (98-107); Glucose 80 mg/dL (70-105); Magnesium 1.8 mg/dL (1.6-2.6); Osmolality,Calculated 280 (280-300); Potassium 3.4 mEq/L (3.5-5.1); Sodium 136 mEq/L (136-145)
[2022-05-06] MEDS: Lactulose Oral Soln 20 GM/30 ML UDC PO SCH ×3 (08:15→19:36)
[2022-05-06] MEDS: Lactobacillus 1 EACH CAP.SPRINK PO SCH (08:16)
[2022-05-06] MEDS: Bumetanide 1 MG TABLET PO SCH ×2 (08:16→19:35)
[2022-05-06] MEDS: polyethylene glycoL 3350 17 GM POWD.PACK PO SCH ×2 (08:16→19:36)
[2022-05-06 17:34] LABS: Calcium 9.1 mg/dL (8.6-10.3); Phosphorous 2.8 mg/dL (2.7-4.5); Potassium 3.1 mEq/L (3.5-5.1)
[2022-05-07 05:08] LABS: Hematocrit 21.4 % (35.3-44.9); Mean Corpuscular HGB Conc 32.7 g/dL (31.6-35.5); Mean Corpuscular Hemoglobin 28.8 pg (28.0-33.3); Mean Corpuscular Volume 88.1 fL (83.0-100.0); Mean Platelet Volume 8.6 fL (9.4-12.4); Red Blood Count 2.43 M/mcL (3.82-4.97); Red Cell Distribution Width 25.6 % (11.5-14.5); White Blood Count 3.4 K/mcL (4.3-11.1)
[2022-05-07 05:24] LABS: Calcium 8.1 mg/dL (8.6-10.3); Potassium 3.2 mEq/L (3.5-5.1)
[2022-05-07] MEDS: Lactulose Oral Soln 20 GM/30 ML UDC PO SCH ×2 (09:47→14:48)
[2022-05-07] MEDS: polyethylene glycoL 3350 17 GM POWD.PACK PO SCH (09:48)
[2022-05-07] MEDS: Lactobacillus 1 EACH CAP.SPRINK PO SCH (09:48)
[2022-05-07] MEDS: Bumetanide 1 MG TABLET PO SCH (09:48)
[2022-05-07 12:21] VITALS: BP 99/62; PULSE 84; TEMP 97.7; O2SAT 100
== END 2022-05-07 15:10 | disposition hospice, home (50) | DRG 442 ==
LOC: 3ANU → SUATTDRO 16:06
PROVIDERS: ADMIT Internal Medicine; ATTEND Internal Medicine